=== PATIENT | female | born 1950 ===

== ENCOUNTER 2022-10-03 05:50 | Day surgery (SDC) | payer OTHER ==
[~2022-10-03 05:50] MED LIST: CARAFA PO; LOSARTAN-HCTZ1 EACH PO; PROTONIX20 MG PO; SYNTHROID75 MCG PO; ZOLOF PO
[2022-10-03] MEDS ORDERED: TRAM1TAB98 PO (08:41)
[2022-10-03] MEDS ORDERED: MACROBID 100 M100 MG PO (08:42)
== END 2022-10-03 12:15 | disposition home or self-care (01) ==
LOC: CIR.AMB 05:50
PROVIDERS: ATTEND Obstetrics & Gynecology Gynecology
DX: N81.11 Cystocele, midline (principal); N81.6 Rectocele; N81.5 Vaginal enterocele; Z20.822 Contact with and (suspected) exposure to COVID-19; I10 Essential (primary) hypertension; E03.9 Hypothyroidism, unspecified